=== PATIENT | female | born 1945 | race American Indian/Alaskan Native ===

== ENCOUNTER 2017-06-10 10:21 | Day surgery (SDC) | payer MEDICARE, OTHER ==
[~2017-06-10 10:21] MED LIST: Lactated Ringers 1,000 ML IV SCH; Lidocaine 2% 5 ML SDV ONE; Propofol 200 MG/20 ML SDV ONE
--- NOTE | 2017-06-10 11:10 | PCM.PREANE ---
Preanesthetic Assessment - Anesthesia/Transfusion/Family Hx Anesthesia History: Prior Anesthesia Reaction Other Type of Anesthesia Reaction Comment: Sick, vomit post anesthesia, my mother '70's heart stopped w/anesthesia Family History of Anesthesia Reaction: No Transfusion History: Prior Transfusion Without Reaction Intubation History: Unknown - Review of Systems General: No Symptoms Pulmonary: No Symptoms Cardiovascular: No Symptoms Gastrointestinal: Other (heme-positive stools) Neurological: No Symptoms Other: Reports: None - Physical Assessment Height: 1.6 m Weight: 86.183 kg ASA Class: 3 Mental Status: Alert & Oriented x3 Airway Class: Mallampati = 2 Dentition: Reports: Edentulous (upper) Thyro-Mental Finger Breadths: 3 Mouth Opening Finger Breadths: 3 ROM/Head Extension: Full Lungs: Clear to Auscultation, Normal Respiratory Effort Cardiovascular: Regular Rate, Regular Rhythm - Allergies Allergies/Adverse Reactions: Allergies Allergy/AdvReac Type Severity Reaction Status Date / Time acetaminophen Allergy Vomiting Verified 06/06/17 14:38 [From Darvocet-N] codeine Allergy Vomiting Verified 06/06/17 14:38 hydrocodone Allergy Hallucinati Verified 06/06/17 14:38 ons oxycodone Allergy Hallucinati Verified 06/06/17 14:38 ons propoxyphene napsylate Allergy Vomiting Verified 06/06/17 14:38 [From Darvocet-N] venom-honey bee Allergy Anaphylactic Verified 06/06/17 14:38 [bee venom (honey bee)] Shock - Blood Blood Available: No - Anesthesia Plan Pre-Op Medication Ordered: None - Acknowledgements Anesthesia Type Planned: MAC Pt an Appropriate Candidate for the Planned Anesthesia: Yes Alternatives and Risks of Anesthesia Discussed w Pt/Guardian: Yes Pt/Guardian Understands and Agrees with Anesthesia Plan: Yes PreAnesthesia Questionnaire HEENT History: Reports: Cataract, Hard of Hearing, Other (See Below) Other HEENT History: using reading glasses, has bilateral heariing aides Cardiovascular History: Reports: High Cholesterol, Hypertension Gastrointestinal History: Reports: Colon Polyp, Diverticulosis, GERD, Hiatal Hernia Genitourinary History: Reports: Other (See Below) Other Genitourinary History: HX: UTI's 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: Musculoskeletal History: Reports: Fracture Other Musculoskeletal History: hx of fx left arm and toe, has left leg pain Neurological History: Reports: Migraines, Other (See Below) Other Neuro History: hx of [place] Palsy Psychiatric History: Reports: Other (See Below) Other Psychiatric History: Claustrophobia Endocrine/Metabolic History: Reports: Obesity/BMI 30+, Other (See Below) Other Endocrine/Metabolic History: took Metformin in the past, was told her Hgb A-1c was good and she should stop the meds - Past Surgical History HEENT Surgical History: Reports: Cataract Surgery GI Surgical History: Reports: Appendectomy, Cholecystectomy, Colonoscopy Female Surgical History: Reports: Breast Biopsy (bilateral), Section , Hysterectomy Musculoskeletal Surgical History: Reports: Carpal Tunnel, Shoulder Surgery Other Musculoskeletal Surgeries/Procedures:: hx of right RTCR- denies hardware - SUBSTANCE USE Smoking Status *Q: Never Smoker Recreational Drug Use History: No - HOME MEDS Home Medications: Home Meds Hydrochlorothiazide 12.5 mg PO BID 04/12/15 [History] Metoprolol Succinate [Toprol XL] 50 mg PO BID 04/12/15 [History] Omeprazole 20 mg PO DAILY 04/12/15 [History] Propylene Glycol [Systane Balance] 1 drop EYEBOTH BID PRN 04/12/15 [History] Ranitidine HCl 150 mg PO BID 04/12/15 [History] - CURRENT (IN HOUSE) MEDS Current Meds: Current Medications Lactated Ringer's (Ringers, Lactated) 1,000 mls @ 125 mls/hr IV ASDIRECTED [facility] Last Admin: 06/10/17 10:57 Dose: 125 mls/hr Discontinued Medications Lidocaine (Xylocaine-Mpf 2%) Confirm Administered Dose 5 ml .ROUTE .STK-MED ONE Stop: 06/10/17 07:42 Propofol (Diprivan 20 Ml) Confirm Administered Dose 400 mg .ROUTE .STK-MED ONE Stop: 06/10/17 07:42
[2017-06-10] MEDS ORDERED: Ondansetron 4 MG Tab.DIS PO PRN (12:30)
--- NOTE | 2017-06-10 12:33 | PCM.OPNOTE ---
- General Post-Op/Procedure Note Date of Surgery/Procedure: 06/10/17 Operative Procedure(s): Colonoscopy Pre Op Diagnosis: Intermittent rectal bleeding. Personal history of colon polyps. Post-Op Diagnosis: Internal hemorrhoids. No evidence of colonic neoplasia. Anesthesia Technique: MAC (ASA III) Primary Surgeon: Gonsalo Escobedo International Banker: Renard Campos Condition: Stable Free Text/Narrative:: Dictation [id number] CPT CODE [id number]
[2017-06-10] MEDS ORDERED: Lactated Ringers 1,000 ML IV SCH (12:45)
--- NOTE | 2017-06-10 12:58 | OR ---
SURGEON: Gonsalo Escobedo M.D. DATE OF PROCEDURE: 06/10/2017 OPERATION PERFORMED: Colonoscopy. DRIVE IN TELLER: Dr. Campos, PGY3. ANESTHESIA: MAC. ASA CLASSIFICATION: III. PREOPERATIVE DIAGNOSES: 1. Intermittent rectal bleeding. 2. Personal history of colon polyps. POSTOPERATIVE DIAGNOSES: 1. No evidence of neoplasia. 2. Internal hemorrhoids. DESCRIPTION OF PROCEDURE: The patient was taken to the endoscopy room and positioned on the endoscopy table in the left lateral decubitus position. Time-out was called for appropriate identification of the patient and procedure. Monitored anesthesia care was provided. The colonoscope was inserted into the rectum and advanced with minimal difficulty to the cecum where the colonoscope was retroflexed to visualize the ascending colon from below. The colonoscope was then straightened and slowly withdrawn. The cecum, ascending colon, hepatic flexure, transverse colon, splenic flexure, descending colon, sigmoid colon, and rectum were very well visualized. No tumors, polyps, diverticula, or angiodysplastic changes were noted anywhere in the lower gastrointestinal tract. Once the colonoscope was withdrawn to the rectum, it was retroflexed to visualize the anal orifice from above. No tumors or polyps were seen. The patient does have internal hemorrhoids that are not acutely bleeding. Colonoscope was then straightened, the rectum aspirated, and the colonoscope removed. The patient tolerated the procedure well and was taken to recovery room in stable condition. KAR HANKINS /[id number]
[2017-06-10 13:16] VITALS: BP 136/61
== END 2017-06-10 13:05 | disposition home or self-care (01) ==
LOC: MW.SDS 10:21
PROVIDERS: ATTEND Surgery
DX: K64.8 Other hemorrhoids (principal); K21.9 Gastro-esophageal reflux disease without esophagitis; I10 Essential (primary) hypertension; E66.9 Obesity, unspecified; Z88.8 Allergy status to other drugs, medicaments and biological substances; Z91.030 Bee allergy status; Z86.010 Personal history of colon polyps; Z79.899 Other long term (current) drug therapy; Z68.33 Body mass index [BMI] 33.0-33.9, adult
CPT/HCPCS: 45378; J7120; 00811; J2704

== ENCOUNTER 2019-08-31 16:39 | Emergency (ER) | payer MEDICARE, OTHER ==
[2019-08-31] MEDS ORDERED: Sodium Chloride 0.9% 2.5 ML Syringe FLUSH PRN (17:05)
[2019-08-31] MEDS ORDERED: Sodium Chloride 0.9% 10 ML Syringe FLUSH PRN (17:05)
[2019-08-31] MEDS ORDERED: diphenhydrAMINE 50 MG/ML SDV IVPUSH ONE (17:05)
[2019-08-31] MEDS ORDERED: Metoclopramide 10 MG/2 ML SDV IVPUSH ONE (17:05)
[2019-08-31] MEDS ORDERED: Alum Hydrox/Mag Hydrox/Simeth 15 ML, Lidocaine 2% 5 ML PO ONE ×2 (17:05)
--- NOTE | 2019-08-31 17:16 | EDM.PDOC ---
<Vance Cevallos - Last Filed: 08/31/19 19:56> ED HPI GENERAL MEDICAL PROBLEM - General Chief Complaint: Abdominal Pain Stated Complaint: ABDOMINAL PAIN Time Seen by Provider: 08/31/19 16:47 - History of Present Illness INITIAL COMMENTS - FREE TEXT/NARRATIVE: Patient signout at 7 PM. Patient seen and evaluated by me. Patient presented to the ED today secondary to abdominal discomfort. Patient reports that she is had abdominal discomfort for quite some time and is currently being evaluated. She reports that today the pain had increased so came to the ED for further evaluation. Patient's ER evaluation thus far has been unremarkable. Patient's labs are all within normal limits. Patient CT scan does not reveal any acute pathology aside from a distended bladder. Patient was asked to utilize the bathroom in the ED after the CT scan and a postvoid residual Rachel catheter was inserted. After voiding, patient had approximately 250 cc of clear urine obtained in Rachel catheter. It appears likely that the patient's distended bladder was secondary to urine production rather than outflow obstruction. Rachel catheter will be removed no further necessity for further evaluation for distended bladder will be required at this time. Patient's urinalysis was unremarkable. Impression/Plan Acute exacerbation of chronic abdominal discomfort. Etiology unclear at this time however ER work-up reveals no acute emergent issues. Patient be discharged home safely with instructions to follow-up with her primary care physician and with Dr. Escobedo for reevaluation. Reassessment at the time of disposition demonstrates that the patient is in no acute distress. The patient has remained stable throughout the entire ED visit and is without objective evidence for acute process requiring urgent intervention or hospitalization. The patient is stable for discharge, counseling is provided as documented above, discussed symptomatic treatment and specific conditions for return. I have spoken with the patient/caregive and discussed todays findings, in addition to providing specific details for the plan of care. Questions are answered and there is agreement with the plan. - Related Data Allergies Allergy/AdvReac Type Severity Reaction Status Date / Time acetaminophen Allergy Vomiting Verified 08/31/19 16:48 [From Darvocet-N] codeine Allergy Vomiting Verified 08/31/19 16:48 hydrocodone Allergy Hallucinati Verified 08/31/19 16:48 ons oxycodone Allergy Hallucinati Verified 08/31/19 16:48 ons propoxyphene napsylate Allergy Vomiting Verified 08/31/19 16:48 [From Darvocet-N] venom-honey bee Allergy Anaphylactic Verified 08/31/19 16:48 [bee venom (honey bee)] Shock warfarin Allergy Hives Verified 08/31/19 16:48 Home Meds: Home Meds Metoprolol Succinate [Toprol XL] 50 mg PO BID 04/12/15 [History] Ciprofloxacin [Cipro XR] 500 mg PO BID 08/31/19 [History] Docusate Sodium [Colace] 100 mg PO BID 08/31/19 [History] Omeprazole 20 mg PO BID 08/31/19 [History] metFORMIN [Glucophage] 500 mg PO BID 08/31/19 [History] metroNIDAZOLE [Metronidazole] 500 mg PO BID 08/31/19 [History] Course - Vital Signs Last Recorded V/S: Last Vital Signs Temp 97.4 F 08/31/19 20:17 Pulse 85 08/31/19 20:17 Resp 18 08/31/19 20:17 BP 157/71 H 08/31/19 20:17 Pulse Ox 96 08/31/19 20:17 - Orders/Labs/Meds Orders: Active Orders 24 hr Category Date Time Status Insert Urinary Catheter [OM.PC] Q24H Care 08/31/19 19:00 Ordered Urinary Catheter Assessment [RC] ASDIRECTED Care 08/31/19 18:53 Active Saline Lock Insert [OM.PC] Stat Oth 08/31/19 17:05 Ordered Labs: Laboratory Tests 08/31/19 08/31/19 08/31/19 Range/Units 16:56 16:56 19:20 WBC 5.24 (4.0-11.0) K/uL RBC 4.09 L (4.30-5.90) M/uL Hgb 11.5 L (12.0-16.0) g/dL Hct 35.0 L (36.0-46.0) % MCV 85.6 (80.0-98.0) fL MCH 28.1 (27.0-32.0) pg MCHC 32.9 (31.0-37.0) g/dL RDW Std Deviation 42.1 (28.0-62.0) fl RDW Coeff of Adela 14 (11.0-15.0) % Plt Count 223 (150-400) K/uL MPV 10.30 (7.40-12.00) fL Neut % (Auto) 57.6 (48.0-80.0) % Lymph % (Auto) 34.0 (16.0-40.0) % [place] % (Auto) 7.6 (0.0-15.0) % Eos % (Auto) 0.6 (0.0-7.0) % Baso % (Auto) 0.2 (0.0-1.5) % Neut # (Auto) 3.0 (1.4-5.7) K/uL Lymph # (Auto) 1.8 (0.6-2.4) K/uL [place] # (Auto) 0.4 (0.0-0.8) K/uL Eos # (Auto) 0.0 (0.0-0.7) K/uL Baso # (Auto) 0.0 (0.0-0.1) K/uL Nucleated RBC % 0.0 /100WBC Nucleated RBCs # 0 K/uL Sodium 132 L (136-145) mmol/L Potassium 3.5 (3.5-5.1) mmol/L Chloride 96 L (98-107) mmol/L Carbon Dioxide 25.2 (21.0-32.0) mmol/L BUN 5 L (7.0-18.0) mg/dL Creatinine 0.9 (0.6-1.0) mg/dL Est Cr Clr Drug Dosing 40.58 mL/min Estimated GFR (MDRD) > 60.0 ml/min Glucose 117 H (74-106) mg/dL Calcium 9.3 (8.5-10.1) mg/dL Total Bilirubin 0.5 (0.2-1.0) mg/dL AST 35 (15-37) IU/L ALT 34 (14-63) IU/L Alkaline Phosphatase 69 (46-116) U/L Total Protein 8.3 H (6.4-8.2) g/dL Albumin 4.0 (3.4-5.0) g/dL Globulin 4.3 H (2.6-4.0) g/dL Albumin/Globulin Ratio 0.9 (0.9-1.6) Lipase 152 (73-393) U/L Urine Color YELLOW Urine Appearance CLEAR Urine pH 6.0 (5.0-8.0) Ur Specific [place] <= 1.005 (1.001-1.035) Urine Protein NEGATIVE (NEGATIVE) mg/dL Urine Glucose (UA) NEGATIVE (NEGATIVE) mg/dL Urine Ketones NEGATIVE (NEGATIVE) mg/dL Urine Occult Blood NEGATIVE (NEGATIVE) Urine Nitrite NEGATIVE (NEGATIVE) Urine Bilirubin NEGATIVE (NEGATIVE) Urine Urobilinogen 0.2 (<2.0) EU/dL Ur Leukocyte Esterase NEGATIVE (NEGATIVE) Meds: Medications Discontinued Medications Generic Name Dose Route Start Last Admin Trade Name Freq PRN Reason Stop Dose Admin Al Hydroxide/Mg Hydroxide 15 0 ml 08/31/19 17:05 08/31/19 17:19 ml/ Lidocaine HCl 5 ml PO 08/31/19 17:06 1 each ONETIME ONE Administration Diphenhydramine HCl 12.5 mg 08/31/19 17:05 08/31/19 17:20 Benadryl IVPUSH 08/31/19 17:06 12.5 mg ONETIME ONE Administration Iopamidol 50 ml 08/31/19 18:46 08/31/19 18:47 Isovue-370 (76%) IV 08/31/19 18:47 50 ml ONETIME ONE Administration Metoclopramide HCl 10 mg 08/31/19 17:05 08/31/19 17:20 Reglan IVPUSH 08/31/19 17:06 10 mg ONETIME ONE Administration Sodium Chloride 10 ml 08/31/19 17:05 08/31/19 17:20 Saline Flush FLUSH 10 ml ASDIRECTED PRN Administration Keep Vein Open Sodium Chloride 2.5 ml 08/31/19 17:05 08/31/19 17:20 Saline Flush FLUSH 2.5 ml ASDIRECTED PRN Administration Keep Vein Open Departure - Departure Time of Disposition: 19:49 Disposition: Home, Self-Care 01 Condition: Good Clinical Impression: Abdominal pain - Discharge Information *PRESCRIPTION DRUG MONITORING PROGRAM REVIEWED*: Not Applicable *COPY OF PRESCRIPTION DRUG MONITORING REPORT IN PATIENT SEGUN: Not Applicable Instructions: Abdominal Pain, Adult Referrals: Sharlene Agrawal ARNP [Primary Care Provider] - Forms: ED Department Discharge Additional Instructions: You have been seen and evaluated today in the emergency department for your abdominal pain. The work-up in the emergency department today does not reveal any acute or life-threatening cause to your pain. At this time, you will be safely discharged home and will be instructed to follow-up with Dr. Escobedo as an outpatient for further evaluation. [facility] - General Surgery [address], [address] [place] [address] The following information is given to patients seen in the emergency department who are being discharged to home. This information is to outline your options for follow-up care. We provide all patients seen in our emergency department with a follow-up referral. The need for follow-up, as well as the timing and circumstances, are variable depending upon the specifics of your emergency department visit. If you don't have a primary care physician on staff, we will provide you with a referral. We always advise you to contact your personal physician following an emergency department visit to inform them of the circumstance of the visit and for follow-up with them and/or the need for any referrals to a consulting specialist. The emergency department will also refer you to a specialist when appropriate. This referral assures that you have the opportunity for follow-up care with a specialist. All of these measure are taken in an effort to provide you with optimal care, which includes your follow-up. Under all circumstances we always encourage you to contact your private physician who remains a resource for coordinating your care. When calling for follow-up care, please make the office aware that this follow-up is from your recent emergency room visit. If for any reason you are refused follow-up, please contact the [facility] Emergency Department at and asked to speak to the emergency department charge nurse. Sepsis Event Note (ED) - Focused Exam Vital Signs: Vital Signs Temp Pulse Resp BP Pulse Ox 08/31/19 20:17 97.4 F 85 18 157/71 H 96 08/31/19 19:25 90 150/61 H 95 - My Orders Last 24 Hours: My Active Orders 08/31/19 17:05 Saline Lock Insert [OM.PC] Stat 08/31/19 18:53 Urinary Catheter Assessment [RC] ASDIRECTED 08/31/19 19:00 Insert Urinary Catheter [OM.PC] Q24H - Assessment/Plan Last 24 Hours: My Active Orders 08/31/19 17:05 Saline Lock Insert [OM.PC] Stat 08/31/19 18:53 Urinary Catheter Assessment [RC] ASDIRECTED 08/31/19 19:00 Insert Urinary Catheter [OM.PC] Q24H <Shannan Ron - Last Filed: 09/01/19 07:29> ED HPI GENERAL MEDICAL PROBLEM - History of Present Illness INITIAL COMMENTS - FREE TEXT/NARRATIVE: History of present illness: 74-year-old female presenting with chronic abdominal pain, located diffusely in the abdomen which she reports has worsened in the last few days. Apparently the patient has had outpatient CT and upper GI endoscopy in the last 2 weeks. The EGD was negative though she had esophageal dilation performed by the mobile application architect Dr. Denise Sanches. The CT scan showed diverticulosis without diverticulitis or other acute etiology for the abdominal pain. Patient does report that the pain worsened significantly yesterday and today to the point that she was unable to control it. Apparently she went to the ER closer to her home yesterday, last night and they gave her some medications but did not do any imaging tests. She also went to her primary care office today where they evaluated her. She reports that she was started on Cipro/Flagyl 2 days ago but she is not certain for what reason. She is here requesting to see Dr. Escobedo, the surgeon who performed her colonoscopy 2 years ago. She also reports that he is no longer taking her metformin because someone in [place] told her she did not need to take it anymore. Review of systems: As per history of present illness and below otherwise all systems reviewed and negative. Past medical history: As per history of present illness and as reviewed below otherwise noncontributory. Surgical history: As per history of present illness and as reviewed below otherwise noncontributory. Social history: No reported history of drug or alcohol abuse. Denies tobacco. Family history: As per history of present illness and as reviewed below otherwise noncontributory. Physical exam: GEN: no acute distress, well appearing HEENT: Atraumatic, normocephalic, mucous membranes moist, Neck: supple, nontender, trachea midline. Lungs: No respiratory distress. Heart: RRR Abdomen: Soft, nondistended, diffusely mildly tender, greater on the left side. Back: nontender Extremities: Atraumatic. Neurovascularly intact. Neuro: Awake, alert, somewhat unable to give PMH and appears somewhat confused about past workup/PMH (told me she was told she didn't need metformin for her DM ). Neuro Exam nonfocal. Skin: warm, dry, no lesions Diagnostics: [] Therapeutics: [] MDM: Impression: [] Plan: [] Definitive disposition and diagnosis as appropriate pending reevaluation and review of above. 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: Musculoskeletal History: Reports: Fracture Other Musculoskeletal History: hx of fx left arm and toe, has left leg pain Neurological History: Reports: Migraines, Other (See Below) Other Neuro History: hx of [place] Palsy Psychiatric History: Reports: Other (See Below) Other Psychiatric History: Claustrophobia Endocrine/Metabolic History: Reports: Obesity/BMI 30+, Other (See Below) Other Endocrine/Metabolic History: took Metformin in the past, was told her Hgb A-1c was good and she should stop the meds Immunologic History: Reports: None Oncologic (Cancer) History: Reports: None Dermatologic History: Reports: None - Infectious Disease History Infectious Disease History: Reports: None - Past Surgical History Head Surgeries/Procedures: Reports: None HEENT Surgical History: Reports: Cataract Surgery Cardiovascular Surgical History: Reports: None Respiratory Surgical History: Reports: None GI Surgical History: Reports: Appendectomy, Cholecystectomy, Colonoscopy Female Surgical History: Reports: Breast Biopsy, Section, Hysterectomy Musculoskeletal Surgical History: Reports: Carpal Tunnel, Shoulder Surgery Other Musculoskeletal Surgeries/Procedures:: hx of right RTCR- denies hardware Dermatological Surgical History: Reports: None Social & Family History - Family History Family Medical History: Unobtainable - Tobacco Use Smoking Status *Q: Never Smoker - Caffeine Use Caffeine Use: Reports: None - Recreational Drug Use Recreational Drug Use: No ED ROS GENERAL - Review of Systems Review Of Systems: See Below (See dictation) ED EXAM, GI/ABD - Physical Exam Exam: See Below (See dictation) Course - Vital Signs Text/Narrative:: Patient requesting to be seen by Dr. Escobedo in the emergency department. 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 She does report that her pain has worsened over the last few days in the interim since having a CT scan [address] scan will be repeated. We will also check labs. She does have history of diabetes and may have some gastroparesis contributing to her symptoms and therefore Reglan was given. Signed out to Dr. Cevallos at 7 PM to follow-up on imaging and reassess patient and make final disposition plan. - Orders/Labs/Meds Labs: Laboratory Tests 08/31/19 08/31/19 08/31/19 Range/Units 16:56 16:56 19:20 WBC 5.24 (4.0-11.0) K/uL RBC 4.09 L (4.30-5.90) M/uL Hgb 11.5 L (12.0-16.0) g/dL Hct 35.0 L (36.0-46.0) % MCV 85.6 (80.0-98.0) fL MCH 28.1 (27.0-32.0) pg MCHC 32.9 (31.0-37.0) g/dL RDW Std Deviation 42.1 (28.0-62.0) fl RDW Coeff of Adela 14 (11.0-15.0) % Plt Count 223 (150-400) K/uL MPV 10.30 (7.40-12.00) fL Neut % (Auto) 57.6 (48.0-80.0) % Lymph % (Auto) 34.0 (16.0-40.0) % [place] % (Auto) 7.6 (0.0-15.0) % Eos % (Auto) 0.6 (0.0-7.0) % Baso % (Auto) 0.2 (0.0-1.5) % Neut # (Auto) 3.0 (1.4-5.7) K/uL Lymph # (Auto) 1.8 (0.6-2.4) K/uL [place] # (Auto) 0.4 (0.0-0.8) K/uL Eos # (Auto) 0.0 (0.0-0.7) K/uL Baso # (Auto) 0.0 (0.0-0.1) K/uL Nucleated RBC % 0.0 /100WBC Nucleated RBCs # 0 K/uL Sodium 132 L (136-145) mmol/L Potassium 3.5 (3.5-5.1) mmol/L Chloride 96 L (98-107) mmol/L Carbon Dioxide 25.2 (21.0-32.0) mmol/L BUN 5 L (7.0-18.0) mg/dL Creatinine 0.9 (0.6-1.0) mg/dL Est Cr Clr Drug Dosing 40.58 mL/min Estimated GFR (MDRD) > 60.0 ml/min Glucose 117 H (74-106) mg/dL Calcium 9.3 (8.5-10.1) mg/dL Total Bilirubin 0.5 (0.2-1.0) mg/dL AST 35 (15-37) IU/L ALT 34 (14-63) IU/L Alkaline Phosphatase 69 (46-116) U/L Total Protein 8.3 H (6.4-8.2) g/dL Albumin 4.0 (3.4-5.0) g/dL Globulin 4.3 H (2.6-4.0) g/dL Albumin/Globulin Ratio 0.9 (0.9-1.6) Lipase 152 (73-393) U/L Urine Color YELLOW Urine Appearance CLEAR Urine pH 6.0 (5.0-8.0) Ur Specific [place] <= 1.005 (1.001-1.035) Urine Protein NEGATIVE (NEGATIVE) mg/dL Urine Glucose (UA) NEGATIVE (NEGATIVE) mg/dL Urine Ketones NEGATIVE (NEGATIVE) mg/dL Urine Occult Blood NEGATIVE (NEGATIVE) Urine Nitrite NEGATIVE (NEGATIVE) Urine Bilirubin NEGATIVE (NEGATIVE) Urine Urobilinogen 0.2 (<2.0) EU/dL Ur Leukocyte Esterase NEGATIVE (NEGATIVE) Sepsis Event Note (ED) - Evaluation Sepsis Screening Result: No Definite Risk
[2019-08-31 17:34] LABS: BLOOD UREA NITROGEN,BUN 5 mg/dL (7.0-18.0); CARBON DIOXIDE,CO2 25.2 mmol/L (21.0-32.0); GLUCOSE RANDOM 117 mg/dL (74-106); LIPASE 152 U/L (73-393); POTASSIUM,K 3.5 mmol/L (3.5-5.1); SODIUM,NA 132 mmol/L (136-145)
[2019-08-31 17:45] LABS: CHLORIDE,CL 96 mmol/L (98-107)
[2019-08-31] MEDS ORDERED: Iopamidol 755 MG/ML 50 ML Bottle IV ONE (18:46)
--- NOTE | 2019-08-31 18:48 | CT ---
CT abdomen and pelvis Technique: Multiple axial sections were obtained from above the dome of the diaphragm inferiorly through the pubic symphysis. Intravenous contrast was utilized. No oral contrast has been given. Comparison: No prior abdominal imaging. Findings: Visualized lung bases shows nothing acute. Heart is enlarged. Mild coronary artery calcification is seen. Liver contains no focal parenchymal abnormality. Surgical clips are seen from prior cholecystectomy. Spleen size is normal. Adrenal glands show no nodule. Pancreas shows no discrete abnormality. Aorta shows no aneurysm. Kidneys show several scattered small cortical cyst. Right and left ureter show some slight prominence. There are 2 equivocal nonobstructing stones within the distal right ureter. This is not a definite finding and findings could represent adjacent phlebolith. Bladder is moderately distended. The mild areas of ureteral distention are most likely due to chronic bladder outlet obstruction. Appendix is not definitely visualized. There is no free fluid or inflammatory change being seen. No bowel dilatation is identified. Bone window settings were reviewed which shows scattered degenerative change within the spine. No acute osseous finding is appreciated. Impression: 1. Moderately distended bladder. This is felt to cause some mild dilatation of portions of the ureters. 2 questionable nonobstructing calculi within the distal right ureter. This is not a definite finding and these calcifications could also represent adjacent phleboliths. 2. Other findings believed to be incidental. Nothing acute is appreciated on CT study of the abdomen and pelvis. Diagnostic code #2 This report was dictated in MDT
[2019-09-01 02:05] VITALS: BP 157/71; PULSE 85
== END 2019-08-31 20:17 | disposition home or self-care (01) ==
LOC: MW.ED 16:39
DX: R10.84 Generalized abdominal pain (principal); G89.29 Other chronic pain; I10 Essential (primary) hypertension; E66.9 Obesity, unspecified; Z68.31 Body mass index [BMI] 31.0-31.9, adult; Z90.49 Acquired absence of other specified parts of digestive tract; Z90.710 Acquired absence of both cervix and uterus; Z88.8 Allergy status to other drugs, medicaments and biological substances; Z88.5 Allergy status to narcotic agent; Z91.030 Bee allergy status; Z79.899 Other long term (current) drug therapy
CPT/HCPCS: 51702; 74177; 80053; 81003; 83690; 85025; 96374; 96375; 99284; A9270; J1200; J2765; Q9967; 99283